=== PATIENT | female | born 2000 | race Caucasian/White ===

== ENCOUNTER 2023-11-13 11:07 | Emergency (ER) | payer MEDICAID ==
[~2023-11-13] VITALS: Ht 152.4 cm; Wt 54.0 kg
[2023-11-13 11:17] VITALS: O2SAT 100
[2023-11-13 15:57] VITALS: BP 120/68; PULSE 99; RESP 18; TEMP 98.2
== END 2023-11-13 15:59 | disposition home or self-care (01) ==
LOC: ER 11:07
DX: L60.0 Ingrowing nail (principal); Z98.890 Other specified postprocedural states
CPT/HCPCS: 99281